=== PATIENT | female | born 2000 | race African-American/Black ===

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

== ENCOUNTER 2022-06-17 09:21 | Emergency (ER) | payer MEDICAID, SELFPAY ==
[2022-06-17] VITALS (9 sets, daily range): BP systolic 107–147; BP diastolic 57–90; PULSE 88–110; RESP 16–20; TEMP 37.2; O2SAT 97–100
--- NOTE | ~2022-06-17 | US_ITS ---
EXAMINATION: US pelvic complete DATE: 06/17/2022 18:01 INDICATION: rule out right ovarian torsion, right sided pain TECHNIQUE: Multiple transabdominal sonographic images of the pelvis were obtained. COMPARISON: CT abdomen and pelvis, same date FINDINGS: Uterus: 7.4 x 4.3 x 4.0 cm. IUD in the lower uterine segment. Endometrial complex measures 3 mm. Right Ovary: 4.7 x 3.8 x 4.3 cm. Vascular flow is present. 3.1 cm simple right ovarian cyst or domina nt follicle. Left Ovary: 2.1 x 1.4 x 1.7 cm. Vascular flow is present. There is no free fluid in the pelvis. IMPRESSION: No sonographic evidence of ovarian torsion. IUD in the lower uterine segment. Reviewed, dictated and finalized at location K.
--- NOTE | ~2022-06-17 | CT_ITS ---
EXAMINATION: CT abdomen pelvis w con DATE: 06/17/2022 14:13 INDICATION: Right lower quadrant abdominal pain. Hematuria. Nausea and vomiting. TECHNIQUE: Computed tomography (CT) of the abdomen and pelvis was performed with 100 mL Omnipaque 350 intravenous contrast. Automated exposure control and iterative reconstruction technique were employe d. The dose-length product was 1374.97 mGy-cm. COMPARISON: None. FINDINGS: The visualized portions of the lung bases demonstrate mild atelectasis. No pleural effusion . The heart size is normal. No pericardial effusion. There are changes of gastric sleeve procedure. T here is a small sliding hiatal hernia. The liver, gallbladder, spleen, pancreas, adrenal glands, and kidneys are normal. There is an intrauterine device in abnormally low position. There is a 2.9 cm dom inant follicle in right ovary. There are no dilated loops of bowel. The appendix is normal. There are no pathologically enlarged lymph nodes. There is no free intraperitoneal fluid. The bones are unrema rkable. IMPRESSION: 1. Intrauterine device in abnormally low position. 2. Small sliding hiatal hernia. Reviewed, dictated and finalized at location A.
[2022-06-17 09:55] LABS: Basophils Percent Auto 0.2 % (0.2-1.2); Eosinophils Percent Auto 0.1 % (0-4.4); Hematocrit 37.3 % (37.0-47.0); Hemoglobin 12.7 g/dL (12.0-15.0); Immature Granulocyte Absolute 0.02 K/mm3 (0.00-0.031); Immature Granulocyte Percent A 0.2 % (0-0.5); Lymphocytes Absolute Auto 1.28 K/mm3 (0.9-3.2); Lymphocytes Percent Auto 13.8 % (18.3-44.2); Mean Corpuscular Hemoglobin 26.7 pg (26-34); Mean Corpuscular Volume 78.5 fl (80-100); Mean Platelet Volume 9.9 fl (7.4-10.4); Monocytes Absolute Auto 0.6 K/mm3 (0.1-0.6); Monocytes Percent Auto 5.9 % (2.6-8.5); Neutrophils Absolute Auto 7.4 K/mm3 (1.3-6.7); Neutrophils Percent Auto 79.8 % (45.5-73.1); Platelet Count Result 402 k/mm3 (150-375); Red Blood Count 4.75 M/mm3 (4.2-5.4); Red Cell Distribution Width 15.4 % (11.5-14.5); White Blood Count 9.3 K/mm3 (4.5-10.0)
[2022-06-17 10:09] LABS: Alanine Aminotransferase 17 U/L (6-35); Albumin Level 4.4 g/dL (3.7-5.6); Alkaline Phosphatase 80 U/L (45-116); Anion Gap 11 mmol/L (8-16); Aspartate Amino Transferase 46 U/L (14-36); Bilirubin,Total 0.8 mg/dL (0.2-1.3); Blood Urea Nitrogen 3 mg/dL (8-21); Calcium 9.3 mg/dL (8.9-10.7); Carbon Dioxide 21 mmol/L (22-30); Chloride 107 mmol/L (98-107); Estimated CRCL calculation 134 ml/min; Estimated Glomerular Filt Rate > 60; Glucose 101 mg/dL (65-110); Lipase 36 U/L (23-300); Potassium 3.6 mmol/L (3.4-5.0); Sodium 139 mmol/L (134-143)
--- NOTE | 2022-06-17 10:41 | PC.NURSE ---
unable to st. cath at triage
[2022-06-17 11:47] LABS: RBC Urine >75 /hpf (0-2); Squamous Epithelial Cell Urine Many /hpf (Few)
[2022-06-17 11:59] LABS: Add Urine Microscopic? YES; Appearance Urine Cloudy (Clear); Bilirubin Urine Negative (Negative); Blood Urine 3+ (Negative); Glucose Urine UA Negative (Negative); Ketones Urine Negative (Negative); Leukocyte Esterase Ur Negative LEU/UL (Negative); Nitrate Urine Negative (Negative); Protein Urine 1+ mg/dL (Negative); Specific Grav Ur 1.015 (1.001-1.035); Urobilinogen Urine 0.2 mg/dL (<2.0); pH Urine 8.5 (5.0-9.0)
[2022-06-17 12:00] LABS: Color Urine Light Red (Yellow)
--- NOTE | 2022-06-17 12:13 | ED.ABDPAIN ---
HPI - Abdominal Pain General Chief Complaint: Abdominal Pain Stated Complaint: n/v, gastric sleeve surgery 3 mos ago Time Seen by Provider: 06/17/22 12:11 Source: patient Mode of arrival: ambulatory Limitations: no limitations History of Present Illness HPI narrative: The patient is a 21 yo female with a history of gastric sleeve presenting to the ER for evaluation of abdominal pain, nausea, and vomiting. Pain is mild, aching in nature. No radiation to the chest, upper abdomen. Patient denies any postprandial pain. She denies diarrhea. Pt also reporting fever, chills, and sore throat. Pt reports pain in right lower side which is aching in nature. Pt reports mild right back pain. She reports hematuria, but is menstruating. She denies dysuria. She does report constipation that are pellet like. Pt denies recent sick contacts. She denies significant cough or shortness of breath. She denies chest pain. Related Data Home Medications Medication Instructions Recorded Confirmed fluticasone propionate 110 inhalation 07/04/21 mcg/actuation HFA aerosol inhaler (Flovent HFA) lansoprazole 30 mg delayed mg 06/17/22 release,disintegrating tablet metformin 500 mg tablet mg 06/17/22 mometasone-formoterol HFA 100 inhalation 06/17/22 mcg-5 mcg/actuation aerosol inhaler (Dulera) montelukast 10 mg tablet mg 06/17/22 fvjgduir-[id number] 45 mg-folic cap PO 06/17/22 acid 800 mcg-vit K 120 mcg capsule (Bariatric Multivitamins) Allergies Allergy/AdvReac Type Severity Reaction Status Date / Time No Known Allergies Allergy Unknown Verified 06/17/22 11:34 Review of Systems Review of Systems: CONSTITUTIONAL:Reports fever and chills EYES: Denies visual changes, redness, or discharge. ENT: Reports rhinorrhea, congestion, sore throat CARDIOVASCULAR: Denies chest pain, palpitations, or edema. RESPIRATORY: Reports cough, denies dyspnea GASTROINTESTINAL: Reports right lower abdominal pain, nausea and vomiting GENITOURINARY: Denies dysuria, reports hematuria, pt currently menstruating SKIN: Denies rash or itching. MUSCULOSKELETAL: Denies back pain, joint pain, reports myalgias NEUROLOGIC: Denies headache, numbness, or weakness. [facility], [facility] Past Medical History Medical History Gastric ulceration History of diabetes mellitus Surgical History Surgical History H/O esophagogastroduodenoscopy Social History Social History Smoking status: Never smoker Substance use: never Gender identity (if verbalized by the patient): Female Exam Narrative: GENERAL: Awake, alert, conversant HEAD: Normocephalic, atraumatic. EYES: PERRLA and EOMI. ENT: Nares clear, no rhinorrhea or epistaxis. Mucous membranes moist. Uvula is midline. Oropharynx is clear. No exudate. No significant erythema or petechiae. No trismus. NECK: Supple. Mild bilateral cervical adenopathy which is tender to palpation. CHEST: No respiratory distress, breathing even and non labored HEART: Regular rate, sinus rhythm ABDOMEN:Non distended, tender in the right lower quadrant without guarding, negative Rovsing sign, no CVA tenderness bilaterally EXTREMITIES: Normal range of motion. No edema. SKIN: Warm, dry, no rash. NEURO:No focal deficits. Alert and oriented x3 Course Vital Signs Vital signs: Vital Signs Temperature 37.2 C 06/17/22 09:25 Pulse Rate 99 06/17/22 09:25 Respiratory Rate 18 06/17/22 09:25 Blood Pressure 147/79 H 06/17/22 09:25 Pulse Oximetry 100 06/17/22 09:25 Oxygen Delivery Room Air 06/17/22 09:25 Temperature 37.2 C 06/17/22 09:25 Pulse Rate 88 06/17/22 12:00 Respiratory Rate 20 06/17/22 12:00 Blood Pressure 127/85 06/17/22 12:00 Pulse Oximetry 98 06/17/22 12:00 Oxygen Delivery Room Air 06/17/22 09:25 MDM - Abdominal Pa
[2022-06-17] MEDS: SODIUM CHLORIDE 0.9% IV 1,000 ML 999 ML IV CONT (14:25)
[2022-06-17] MEDS: MORPHINE SULFATE (*CRX) 4 MG/ML INJ IV PUSH (14:26)
[2022-06-17] MEDS: ONDANSETRON INJ 4 MG/2 ML VIAL IV PUSH (14:26)
[2022-06-17 14:47] LABS: SARS-CoV-2 RNA PCR Negative
[2022-06-17 15:29] LABS: Monoscreen Negative (Negative); Negative Monotest Control Negative (Negative); Positive Monotest Control Positive (Positive)
== END 2022-06-17 18:55 | disposition home or self-care (01) ==
PROVIDERS: Emergency Medicine; Emergency Provider Emergency Medicine; PCP Pediatrics
DX: B34.9 Viral infection, unspecified (principal); R10.9 Unspecified abdominal pain; Z20.822 Contact with and (suspected) exposure to COVID-19; E11.9 Type 2 diabetes mellitus without complications; Z98.84 Bariatric surgery status; K44.9 Diaphragmatic hernia without obstruction or gangrene; Z97.5 Presence of (intrauterine) contraceptive device; Z79.84 Long term (current) use of oral hypoglycemic drugs
CPT/HCPCS: 36415; 74177; 76856; 80053; 81001; 81025; 83690; 85025; 86308; 87081; 87086; 87088; 87880; 96361; 96374; 96375; 99284; C9803; J2270; J2405; J7030; Q9967; U0003; U0005

== ENCOUNTER 2023-02-27 09:58 | Emergency (ER) | payer MEDICAID, SELFPAY ==
--- NOTE | ~2023-02-27 | CT_ITS ---
EXAMINATION: CT brain wo con DATE: 02/27/2023 11:50 INDICATION: Head injury. TECHNIQUE: Computed tomography (CT) of the head was performed without intravenous contrast. The mA wa s adjusted according to patient size. Iterative reconstruction technique was employed. The dose-lengt h product was 605.33 mGy-cm. COMPARISON: None FINDINGS: There is no intracranial hemorrhage, acute infarction, or abnormal intracranial mass lesion . The ventricles are normal in size. There is mucosal thickening in left ethmoid sinus. The mastoid a ir cells are normal. IMPRESSION: 1. Normal brain. Reviewed, dictated and finalized at location A. IMPRESSION: 1. Normal brain.
[2023-02-27 10:09] VITALS: BP 136/81; PULSE 95; RESP 14; TEMP 36.4; O2SAT 100
[2023-02-27] MEDS: TETANUS,DIPHTHERIA,AC PERTUSSIS ADULT (0.5 ML) BOOSTRIX IM (11:30)
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
== END 2023-02-27 14:02 | disposition home or self-care (01) ==
PROVIDERS: Emergency Provider Physician Assistant; PCP Pediatrics
DX: S00.81XA Abrasion of other part of head, initial encounter (principal); Y08.89XA Assault by other specified means, initial encounter; E11.9 Type 2 diabetes mellitus without complications; Z79.84 Long term (current) use of oral hypoglycemic drugs; Z23 Encounter for immunization
CPT/HCPCS: 70450; 90471; 90715; 99284

== ENCOUNTER 2023-09-10 16:47 | Emergency (ER) | payer MEDICAID, SELFPAY ==
[2023-09-10 17:17] VITALS: BP 119/63; PULSE 78; RESP 16; TEMP 36.4; O2SAT 100
--- NOTE | 2023-09-10 20:04 | PC.NURSE ---
no answer for room at this time 2003
--- NOTE | 2023-09-10 20:16 | PC.NURSE ---
no answer for room at 2016
== END 2023-09-10 21:05 | disposition left against medical advice (07) ==
LOC: ANHED 20:21
PROVIDERS: PCP Pediatrics
DX: Z11.3 Encounter for screening for infections with a predominantly sexual mode of transmission (principal)
CPT/HCPCS: 99199